=== PATIENT | male | born 1975 | race Caucasian/White ===

== ENCOUNTER 2016-12-27 19:41 | Emergency (ER) | payer BC ==
[2016-12-27] MEDS ORDERED: 0.9 % SODIUM CHLORIDE 1,000 ML BAG IV ONE (19:58)
[2016-12-27] MEDS ORDERED: ONDANSETRON HCL IV 4 MG/2 ML VIAL IVP ONE (20:01)
[2016-12-27] MEDS ORDERED: HUMULIN R 100 UNIT/ML VIAL SQ ONE (20:03)
[2016-12-27 20:12] LABS: BASO % 0.1 % (0-6); EOS % 0.1 % (0-6); HEMATOCRIT 49.9 % (42.0-52.0); HEMOGLOBIN 17.2 gm/dl (14.0-18.0); LYMPH % 9.4 % (16-45); MEAN CORPUSCULAR HGB CONC 34.5 g/dl (32-36); MEAN PLATELET VOLUME 11.6 fl (7.4-10.4); MONO % 5.2 % (0-9); PLATELET COUNT 462 K/uL (130-400); RED BLOOD COUNT 5.94 M/uL (4.40-5.70); RED CELL DISTRIBUTION WIDTH 12.4 % (11.5-14.5)
[2016-12-27 20:15] LABS: MEAN CORPUSCULAR HEMOGLOBIN 28.9 pg (27-33)
[2016-12-27 20:18] LABS: WHITE BLOOD COUNT W/O DIFF 20.8 K/uL (4.2-12.2)
[2016-12-27 20:21] LABS: ALB/GLOB RATIO 1.3 (1.1-1.8); ALBUMIN 4.7 g/dL (4.0-5.0); BILIRUBIN,TOTAL 0.6 mg/dL (0.2-1.0); BLOOD UREA NITROGEN 66.5 mg/dL (12.6-42.6); CREATININE 1.4 mg/dL (0.7-1.2); TOTAL PROTEIN 8.4 g/dL (6.6-8.7)
[2016-12-27 20:31] LABS: ACETONE,SERUM POSITIVE (NEGATIVE)
[2016-12-27] MEDS ORDERED: PROMETHAZINE HCL 12.5 MG in 0.9 % SODIUM CHLORIDE 100ML 100 ML IVPB ONE (20:57)
--- NOTE | 2016-12-27 20:59 | Emergency Department Record ---
History of Present Illness - General Chief complaint: Hypergylcemia Stated complaint: HYPERGLYCEMIA Time Seen by Provider: 12/27/16 19:57 Source: Patient Mode of Arrival: EMS Limitations: No limitations - History of Present Illness Initial comments: pt ran out of his insulin and has intractable vomiting.. MD Complaint: Generalized weakness Onset/Timin -: Days(s) Severity: Mild Consistency: Constant Improves with: None Worsens with: None Associated Symptoms: Nausea/vomiting - [place] Coma Scale Eye Response: (4) Open spontaneously Motor Response: (6) Obeys commands Verbal Response: (5) Oriented [place] Total: 15 - Related Data Home Medications Medication Instructions Recorded Confirmed Last Taken Insulin Aspart [Novolog] 1 unit SQ ASDIR 12/27/16 12/27/16 Unknown Lisinopril [Zestril] 5 mg PO QPM 12/27/16 12/27/16 Unknown Allergies Allergy/AdvReac Type Severity Reaction Status Date / Time tetrahydrozoline Allergy SWOLLEN Verified 12/27/16 19:50 [From Pivot[employer]] EYES Travel Screening - Travel/Exposure Within Last 30 Days Have you traveled within the last 30 days?: No - Travel/Exposure Within Last Year Have you traveled outside the [place] in the last year?: No - Additonal Travel Details Have you been exposed to anyone with a communicable illness?: No - Travel Symptoms Symptom Screening: None Review of Systems Reviewed: No additional complaints except as noted below Constitutional: Reports: As per HPI. Denies: Chills, Fever, Malaise, Night sweats, Weakness, Weight change Eyes: Reports: As per HPI. Denies: Eye discharge, Eye pain, Photophobia, Vision change ENT: Reports: As per HPI. Denies: Congestion, Dental pain, Ear pain, Epistaxis , Hearing loss, Throat pain Respiratory: Reports: As per HPI. Denies: Cough, Dyspnea, Hemoptysis, Stridor, Wheezes Cardiovascular: Reports: As per HPI. Denies: Arrhythmia, Chest pain, Dyspnea on exertion, Edema, Murmurs, Orthopnea, Palpitations, Paroxysmal nocturnal dyspnea, Rheumatic Fever, Syncope Endocrine: Reports: As per HPI. Denies: Fatigue, Heat or cold intolerance, Polydipsia, Polyuria Gastrointestinal: Reports: As per HPI. Denies: Abdominal pain, Constipation, Diarrhea, Hematemesis, Hematochezia, Melena, Nausea, Vomiting Genitourinary: Reports: As per HPI. Denies: Dysuria, Frequency, Hematuria, Incontinence, Retention, Testicular pain, Testicular mass, Urgency Musculoskeletal: Reports: As per HPI. Denies: Arthralgia, Back pain, Gout, Joint swelling, Myalgia, Neck pain Skin: Reports: As per HPI. Denies: Bruising, Change in color, Change in hair/ nails, Lesions, Pruritus, Rash Neurological: Reports: As per HPI. Denies: Abnormal gait, Confusion, Headache, Numbness, Paresthesias, Seizure, Tingling, Tremors, Vertigo, Weakness Psychiatric: Reports: As per HPI. Denies: Anxiety, Auditory hallucinations, Depression, Homicidal thoughts, Suicidal thoughts, Visual hallucinations Hematological/Lymphatic: Reports: As per HPI. Denies: Anemia, Blood Clots, Easy bleeding, Easy bruising, Swollen glands Past Medical History - SOCIAL HISTORY Smoking Status: Never smoker Alcohol Use: None Drug Use: None - RESPIRATORY Hx Respiratory Disorders: No - CARDIOVASCULAR Hx Cardio Disorders: No - NEURO Hx Neuro Disorders: No - GI Hx GI Disorders: No - Hx Genitourinary Disorders: No - ENDOCRINE Hx Endocrine Disorders: No - MUSCULOSKELETAL Hx Musculoskeletal Disorders: No - PSYCH Hx Psych Problems: No - HEMATOLOGY/ONCOLOGY Hx Hematology/Oncology Disorders: No Family Medical History Any Significant Family History?: No Physical Exam - General General Appearance: Alert, Oriented x3, Cooperative, Moderate distress - Head Head exam: Normal inspection - Eye Eye exam: Normal appearance, PERRL, EOMI Pupils: Normal accommodation - ENT ENT exam: Normal exam, Mucous membranes dry, Normal external ear exam, Normal orophraynx Ear exam: Normal external inspection. negative: External canal tenderness Nasal Exam: Normal inspection. negative: Discharge, Sinus tenderness Mouth exam: Normal external inspection, Tongue normal Teeth exam: Normal inspection. negative: Dental caries Throat exam: Normal inspection. negative: Tonsillar erythema, Tonsillar exudate - Neck Neck exam: Normal inspection, Full ROM. negative: Tenderness - Respiratory Respiratory exam: Normal lung sounds bilaterally. negative: Respiratory distress - Cardiovascular Cardiovascular Exam: Normal rhythm, Normal heart sounds, Tachycardia - GI/Abdominal GI/Abdominal exam: Soft, Normal bowel sounds. negative: Tenderness - Rectal Rectal exam: Deferred - exam: Deferred - Extremities Extremities exam: Normal inspection, Full ROM, Normal capillary refill. negative: Tenderness - Back Back exam: Reports: Normal inspection, Full ROM. Denies: Muscle spasm, Rash noted, Tenderness - Neurological Neurological exam: Alert, CN II-XII intact, Normal gait, Oriented X3 - Psychiatric Psychiatric exam: Normal affect, Normal mood - Skin Skin exam: Dry, Intact, Normal color, Warm Course Vital Signs 12/27/16 19:44 Temperature 97.9 F Pulse Rate 135 H Respiratory 24 Rate Blood Pressure 140/80 Pulse Ox 99 - Reevaluation(s) Reevaluation #1: 12/27/16 21:04 d/w dr veliz. Medical Decision Making - Lab Data Result diagrams: 12/27/16 19:40 12/27/16 19:40 Lab Results 12/27/16 12/27/16 12/27/16 Range/Units 19:40 19:40 19:40 WBC 20.8 H* (4.2-12.2) K/uL RBC 5.94 H (4.40-5.70) M/uL Hgb 17.2 (14.0-18.0) gm/dl Hct 49.9 (42.0-52.0) % MCV 84.0 (81-97) fl MCH 28.9 (27-33) pg MCHC 34.5 (32-36) g/dl RDW 12.4 (11.5-14.5) % Plt Count 462 H (130-400) K/uL MPV 11.6 H (7.4-10.4) fl Neutrophils % 86.0 H (47-80) % Band Neutrophils % 0.0 (0-5) % Lymphocytes % 9.4 L (16-45) % Monocytes % 5.2 (0-9) % Eosinophils % 0.1 (0-6) % Basophils % 0.1 (0-6) % Lymphocytes 8.0 L (16-45) % Monocytes 6.0 (0-9) % Basophils 0.0 (0-6) % Eosinophil Count 0.0 (0-6) % VBG pH 7.05 L (7.32-7.41) Sodium 125 L (136-145) mmol/L Potassium 5.6 H (3.4-4.5) mmol/L Chloride 82 L (98-107) mmol/L Carbon Dioxide 6.0 L (22-29) mmol/L Anion Gap 37.0 H (7-16) BUN 66.5 H (12.6-42.6) mg/dL Creatinine 1.4 H (0.7-1.2) mg/dL Estimated GFR 60 mL/min Random Glucose 677 H* (74-109) mg/dL Calcium 9.2 (8.6-10.0) mg/dL Total Bilirubin 0.60 (0.2-1.0) mg/dL AST 26 (10.0-50.0) U/L ALT 41 (<41) U/L Alkaline Phosphatase 155 H (40-129) U/L Total Protein 8.4 (6.6-8.7) g/dL Albumin 4.7 (4.0-5.0) g/dL Globulin 3.7 (1.4-4.8) gm/dL Albumin/Globulin Ratio 1.3 (1.1-1.8) Acetone, Qual Positive (NEGATIVE) Disposition Disposition: Transfer Clinical Impression: DKA, type 1 Qualifiers: Diabetes mellitus complication detail: without coma Qualified Code(s): E10.10 - Type 1 diabetes mellitus with ketoacidosis without coma Disposition: Acute Care Hospital Transfer Transfer To: [facility] Reason For Transfer: dka Accepting Physician: keren Time Discussed w/Accepting Physician: 21:03 Forms: Patient Portal Access Quality - Quality Measures Quality Measures: N/A - Blood Pressure Screening Does Patient Have Any of the Following: No Blood Pressure Classification: Pre-Hypertensive BP Reading Systolic Measurement: 140 Diastolic Measurement: 80 Screening for High Blood Pressure: < Pre-Hypertensive BP, F/U Documented > [ [id number]] Pre-Hypertensive Follow-up Interventions: Follow-up with rescreen every year.
[2016-12-27] MEDS ORDERED: INSULIN REGULAR, HUMAN 100 UNIT in 0.9 % SODIUM CHLORIDE 100ML 100 ML IV SCH ×2 (21:00)
[2016-12-27] MEDS ORDERED: 0.9 % SODIUM CHLORIDE 1000ML 1,000 ML IV PRN (21:24)
== END 2016-12-27 22:08 | disposition short-term general hospital (02) ==
LOC: ER 19:41
DX: E10.10 Type 1 diabetes mellitus with ketoacidosis without coma (principal); Z79.4 Long term (current) use of insulin; R11.2 Nausea with vomiting, unspecified; R53.1 Weakness
CPT/HCPCS: 99285 ×2; 96374; 96372; 96375; 96361; 82800; 80053; 36416; 82009; 82948; 85027; J2405; J1815; J2550; J7030